=== PATIENT | male | born 1980 | race Caucasian/White ===

== ENCOUNTER 2019-08-09 18:52 | Emergency (ER) | payer SELFPAY ==
[2019-08-09 19:07] VITALS: BP 114/69
[2019-08-09] MEDS ORDERED: Ketorolac *IM* INJ* 60 MG/2 ML VIAL IM ONE (19:15)
--- NOTE | 2019-08-09 19:15 | UC ---
Abdominal Pain Male HPI - HPI Summary HPI Summary: 38 yo male presents with flank pain. He tells me that this morning he woke up with right > left flank pain. As the morning progressed, he noticed his urine stream was decreased and it hurt to urinate. Around 1400 he noticed a pink tint to his urine with increased right flank pain and RLQ abdominal pain. Around 1600 he recall going to urinate and had "dribbles" followed by a strong stream "like a firehose" that was very painful. Since that time his pain has improved significantly, but is still having some flank pain prompting his visit this evening. Has been urinating fine since episode at 1400. No hematuria since that time. Denies fever, recent illness, n/v/d/c, injury, SOB, chest pain. No hx of kidney stones. Last BM was last night and normal for him. Nothing OTC for his symptoms - History of Current Complaint Chief Complaint: UCAbdominalPain Stated Complaint: ABDOMINAL COMPLAINT Time Seen by Provider: 08/09/19 19:15 Hx Obtained From: Patient Onset/Duration: Sudden Onset Severity Initially: Severe Severity Currently: Moderate Pain Intensity: 6 Pain Scale Used: 0-10 Numeric - Allergies/Home Medications Allergies/Adverse Reactions: Allergies Allergy/AdvReac Type Severity Reaction Status Date / Time No Known Allergies Allergy Verified 08/09/19 19:04 Home Medications: Home Medications NK [No Home Medications Reported] 08/09/19 [History Confirmed 08/09/19] PMH/Surg Hx/FS Hx/Imm Hx - Additional Past Medical History Additional PMH: None - Surgical History Surgical History: Yes Surgery Procedure, Year, and Place: KNEE SURGERY X3 - Family History Known Family History: Positive: None - Social History Occupation: Employed Full-time Lives: With Family Alcohol Use: Occasionally Substance Use Type: None Smoking Status (MU): Heavy Every Day Tobacco Smoker Review of Systems All Other Systems Reviewed And Are Negative: No Constitutional: Positive: Negative Skin: Positive: Negative Eyes: Positive: Negative ENT: Positive: Negative Respiratory: Positive: Negative Cardiovascular: Positive: Negative Gastrointestinal: Positive: Abdominal Pain Genitourinary: Positive: Hematuria Motor: Positive: Negative Neurovascular: Positive: Negative Musculoskeletal: Positive: Negative Neurological: Positive: Negative Psychological: Positive: Negative Physical Exam - Summary Physical Exam Summary: GENERAL: NAD. WDWN. No pain distress. SKIN: No rashes, sores, lesions, or open wounds. NECK: Supple. Nontender. No lymphadenopathy. CHEST: CTAB. No r/r/w. No accessory muscle use. Breathing comfortably and in no distress. CV: RRR. Pulses intact. Cap refill <2seconds ABDOMEN: Soft. NTTP. No distention or guarding. Mild right CVA tenderness. Bowel sounds present. No mcburney point tenderness. NEURO: Alert. PSYCH: Age appropriate behavior. Triage Information Reviewed: Yes Vital Signs: Initial Vital Signs Temp 99.8 F 08/09/19 19:04 Pulse 102 08/09/19 19:04 Resp 18 08/09/19 19:04 BP 114/69 08/09/19 19:04 Pulse Ox 96 08/09/19 19:04 Laboratory Tests 08/09/19 19:08 POC Urine Color Yellow POC Urine Clarity Clear POC Urine pH 6.5 POC Ur Specif [place] 1.015 POC Urine Protein Negative POC Ur Glucose (UA) Negative POC Urine Ketones Negative POC Urine Blood Trace-intact POC Urine Nitrite Negative POC Urine Bilirubin Negative POC Urine Urobilinogen 0.2 POC U Leukocyte Esteras Trace Vital Signs Reviewed: Yes Diagnostics - Radiology CT ab/pelv Radiology Interpretation Completed By: Radiologist Summary of Radiographic Findings: FINDINGS: Liver: There is mild hepatomegaly. Gallbladder and bile ducts: Normal. No calcified stones. No ductal dilation. Pancreas: Normal. No ductal dilation. Spleen: Normal. No splenomegaly. Adrenals : Normal. No mass. Kidneys and ureters: Normal. No hydronephrosis. Stomach and bowel: Unremarkable. No obstruction. No mucosal thickening. Appendix: The appendix is unremarkable and seen best on axial image 55 of series 2. Intraperitoneal space: Unremarkable. No free air. No significant fluid collection. Vasculature: There are atherosclerotic aortic and iliac artery calcifications. Lymph nodes: Unremarkable. No enlarged lymph nodes. Bladder: Unremarkable as visualized. Reproductive: There are mild prostate gland calcifications. Bones/joints: Unremarkable. No acute fracture. Soft tissues: Unremarkable. IMPRESSION: No visible renal, ureteral or bladder calculi. Abd Pain Male Course/Dx - Course Course Of Treatment: He was given toradol 60mg IM in the clinic. UA and CT as above. Suspect that he did have a kidney stone that he passed earlier today. Pt is currently asymptomatic on eval and is feeling fine. Recommend that if his symptoms return to be rechecked in the ED. - Differential Dx/Clinical Impression Provider Diagnosis: Flank pain Discharge ED - Sign-Out/Discharge Documenting (check all that apply): Patient Departure All imaging exams completed and their final reports reviewed: Yes - Discharge Plan Condition: Stable Disposition: HOME Patient Education Materials: Kidney Stones (ED) Referrals: Satish Coffman MD [Primary Care Provider] - Additional Instructions: If you develop a fever, shortness of breath, chest pain, new or worsening symptoms - please call your PCP or go to the ED immediately. Your CT scan was normal this evening and did not show any kidney stones. Given your symptoms and history - it seems most likely that you passed a kidney stone earlier today. Your pain should resolve with rest and time within a day - if you have new or worsening symptoms, please go to the ER immediately. - Billing Disposition and Condition Condition: STABLE Disposition: Home
== END 2019-08-09 20:27 | disposition home or self-care (01) ==
LOC: UCEAST 18:52
DX: R10.31 Right lower quadrant pain (principal); F17.290 Nicotine dependence, other tobacco product, uncomplicated
CPT/HCPCS: 74176; 81003; 87086; 96372; 99201; G0463; J1885